=== PATIENT | female | born 1990 | race African-American/Black ===

== ENCOUNTER 2020-04-20 16:48 | Outpatient (CLI) | payer OTHER ==
[~2020-04-20] VITALS: Ht 170.2 cm; Wt 78.2 kg
[2020-04-20 17:03] VITALS: BP 99/57
[2020-04-20] MEDS ORDERED: PREN1TAB60 PO (17:32)
== END 2020-04-20 17:48 | disposition home or self-care (01) ==
LOC: LDOP 16:48
PROVIDERS: ATTEND Obstetrics & Gynecology
DX: O36.8130 Decreased fetal movements, third trimester, not applicable or unspecified (principal); Z3A.32 32 weeks gestation of pregnancy
CPT/HCPCS: 59025

== ENCOUNTER 2020-06-07 00:02 | Inpatient (IN) | payer OTHER ==
[~2020-06-07] VITALS: Ht 170.2 cm; Wt 80.0 kg
[~2020-06-07 00:02] MED LIST: PREN1TAB60 PO
[2020-06-07] MEDS ORDERED: LIDOCAINE 1%, 20ML ONE (00:45)
[2020-06-07] MEDS ORDERED: MISOPROSTOL 200 MCG TABLET ONE (00:45)
[2020-06-07] MEDS ORDERED: NEWBORN KIT ONE (00:45)
[2020-06-07] MEDS ORDERED: OXYTOCIN 30U/ 0.9% NaCL 500ML 0 ML ONE (00:46)
[2020-06-07] MEDS ORDERED: TERBUTALINE 1 MG/ML, 1ML ONE (00:46)
[2020-06-07] MEDS ORDERED: LACTATED RINGERS 1,000 ML IV SCH ×2 (01:00→02:30)
[2020-06-07] MEDS ORDERED: D5%-LACTATED RINGERS 1,000 ML IV SCH (01:00)
[2020-06-07] MEDS ORDERED: FENTANYL PF 100 MCG/2ML IVPush PRN (01:00)
[2020-06-07] MEDS ORDERED: SODIUM CITRATE/CITRIC ACID 30 ML UDC PO PRN (01:00)
[2020-06-07] MEDS ORDERED: TERBUTALINE 1 MG/ML, 1ML SQ PRN (01:00)
[2020-06-07] MEDS ORDERED: ONDANSETRON 2MG/ML, 2ML IVPush PRN ×2 (01:00→02:30)
[2020-06-07] MEDS ORDERED: OXYTOCIN 30U/ 0.9% NaCL 500ML 500 ML IV ONE (01:00)
[2020-06-07] MEDS ORDERED: CALCIUM CARBONATE 500 MG TAB.CHEW PO PRN ×2 (01:00→05:00)
[2020-06-07] MEDS ORDERED: METOCLOPRAMIDE 5 MG/ML, 2ML IVPush PRN (01:00)
[2020-06-07] MEDS ORDERED: FENTANYL PF 100 MCG/2ML IV PRN (01:00)
[2020-06-07] MEDS ORDERED: TERBUTALINE 1 MG/ML, 1ML IVPush PRN (01:00)
[2020-06-07 01:15] LABS: BASOPHILS % (AUTO) 1 % (0-1); EOSINOPHILS % (AUTO) 2 % (1-7); LYMPHOCYTES % (AUTO) 22 % (22-44); MEAN CORPUSCULAR HEMOGLOBIN 30.8 pg (27.0-34.8); MEAN CORPUSCULAR HGB CONC 33.5 g/dL (32.4-35.8); MEAN PLATELET VOLUME 9.7 fL (7.4-10.4); MONOCYTES % (AUTO) 4 % (2-9); NEUTROPHILS % (AUTO) 72 % (42-75); PLATELET COUNT 168 x10^3/uL (130-400); RED CELL DISTRIBUTION WIDTH 13.4 % (9.6-15.2)
[2020-06-07] MEDS ORDERED: BUPIVACAINE 0.25% ONE (01:24)
[2020-06-07] MEDS ORDERED: FENTANYL/BUPIV./NS/PF 250 ML EPIDCONT ONE (01:24)
[2020-06-07 01:25] LABS: MD NO
[2020-06-07] MEDS ORDERED: PLEASE ENTER HEIGHT AND WEIGHT MC SCH (02:00)
[2020-06-07] MEDS ORDERED: LACTATED RINGERS 1,000 ML IVBOLUS PRN (02:30)
[2020-06-07] MEDS ORDERED: EPHEDRINE 50 MG/ML, 1ML IVPush PRN (02:30)
[2020-06-07] MEDS ORDERED: FENTANYL/BUPIV./NS/PF 250 ML EPIDCONT SCH (02:30)
[2020-06-07] MEDS ORDERED: MAGNESIUM HYDROXIDE 8%, 30ML UDC PO PRN (05:00)
[2020-06-07] MEDS: OXYTOCIN 30U/ 0.9% NaCL 500ML 500 ML IV SCH ×2 (05:00→15:00)
[2020-06-07] MEDS ORDERED: ACETAMINOPHEN 325 MG TABLET PO PRN ×2 (05:00)
[2020-06-07] MEDS ORDERED: DIPH,PERTUSS(ACELL),TET VAC/PF NC IM-VACC PRN (05:00)
[2020-06-07] MEDS ORDERED: ONDANSETRON 2MG/ML, 2ML IV PRN (05:00)
[2020-06-07] MEDS ORDERED: RHOGAM FROM BLOOD BANK 1 NOTE EA IM/IV ONE (05:00)
[2020-06-07] MEDS ORDERED: SIMETHICONE 80 MG CHEW TAB PO PRN (05:00)
[2020-06-07] MEDS ORDERED: MISOPROSTOL 200 MCG TABLET PR PRN (05:00)
[2020-06-07] MEDS ORDERED: OXYcodone/APAP 5/325MG TABLET PO PRN ×2 (05:00)
[2020-06-07 07:08] VITALS: BP 91/54
[2020-06-07] MEDS: PRENATAL VIT/IRON/FA 1 EACH TABLET PO SCH (07:29)
[2020-06-07] MEDS: IBUPROFEN 600 MG TABLET PO PRN ×3 (10:08→23:51)
[2020-06-07 12:10] VITALS: BP 100/62
[2020-06-07 12:18] LABS: BASOPHILS % (AUTO) 0 % (0-1); EOSINOPHILS % (AUTO) 0 % (1-7); LYMPHOCYTES % (AUTO) 11 % (22-44); MEAN CORPUSCULAR HEMOGLOBIN 30.5 pg (27.0-34.8); MEAN CORPUSCULAR HGB CONC 33.5 g/dL (32.4-35.8); MEAN PLATELET VOLUME 9.5 fL (7.4-10.4); MONOCYTES % (AUTO) 7 % (2-9); NEUTROPHILS % (AUTO) 82 % (42-75); PLATELET COUNT 157 x10^3/uL (130-400); RED BLOOD COUNT 3.81 x10^6/uL (3.82-5.3); RED CELL DISTRIBUTION WIDTH 13.1 % (9.6-15.2)
[2020-06-07 12:19] LABS: MD NO
[2020-06-07 17:30] VITALS: BP 110/69
[2020-06-07 20:00] VITALS: BP 112/69
[2020-06-07] MEDS: DOCUSATE 100 MG CAPSULE PO PRN (20:05)
[2020-06-07 23:50] VITALS: BP 108/57
[2020-06-08] MEDS: OXYTOCIN 30U/ 0.9% NaCL 500ML 500 ML IV SCH (01:00)
[2020-06-08] MEDS: IBUPROFEN 600 MG TABLET PO PRN (05:53)
[2020-06-08 07:19] VITALS: BP 111/69
[2020-06-08] MEDS: PRENATAL VIT/IRON/FA 1 EACH TABLET PO SCH (07:33)
[2020-06-08] MEDS: DOCUSATE 100 MG CAPSULE PO PRN (07:33)
[2020-06-08] MEDS ORDERED: IBUP-1223 PO (09:18)
== END 2020-06-08 10:45 | disposition home or self-care (01) | DRG 807 ==
LOC: LDOP 00:02 → LDIP 00:28 → 2NW 06:27
PROVIDERS: ADMIT Obstetrics & Gynecology; ATTEND Obstetrics & Gynecology
PROC: 10E0XZZ Delivery of Products of Conception, External Approach (ICD-10-PCS; principal; 2020-06-07)
PROC: 0KQM0ZZ Repair Perineum Muscle, Open Approach (ICD-10-PCS; 2020-06-07)
PROC: 3E0R3BZ Introduction of Anesthetic Agent into Spinal Canal, Percutaneous Approach (ICD-10-PCS; 2020-06-07)
PROC: 00HU33Z Insertion of Infusion Device into Spinal Canal, Percutaneous Approach (ICD-10-PCS; 2020-06-07)
DX: O34.211 Maternal care for low transverse scar from previous cesarean delivery (principal); Z37.0 Single live birth; O70.1 Second degree perineal laceration during delivery; Z3A.39 39 weeks gestation of pregnancy; Z20.822 Contact with and (suspected) exposure to COVID-19
CPT/HCPCS: 36415; 85025; 86592; 86850; 86900; 87635; G0378; J3010

== ENCOUNTER 2020-11-28 12:13 | Emergency (ER) | payer OTHER ==
[~2020-11-28] VITALS: Ht 170.2 cm; Wt 75.0 kg
[~2020-11-28 12:13] MED LIST changes: +IBUP-1223 PO
[2020-11-28 12:24] VITALS: BP 122/73
--- NOTE | 2020-11-28 12:24 | NUR ---
PT BIBA FROM WORK FOR C/O R-SIDED NECK AND BACK PAIN WITH DIZZY SPELLS. PER EMS PT STATED SHE FELT DIZZY AT WORK AND LAID DOWN ON THE GROUND. PT STATES SHE FEELS LIGHT HEADED, DIZZY AND HAS A RODRIGUEZ. DENIES LOC, INJURY. DENIES N/V. PT DENIES ANY MEDICAL HX AND DENIES TAKING ANY MEDICATIONS. PT AXOX4. cHANGED INTO GOWN, ALL MONITORS IN PLACE, CALL LIGHT WITHIN REACH, BED RAILS UP X2, BED IN LOWEST POSITION.
--- NOTE | 2020-11-28 12:31 | NUR ---
ERP AT BS FOR EVAL
--- NOTE | 2020-11-28 12:32 | NUR ---
PT STATES SHE DOES NOT WANT ANY MEDICATION UNTIL SHE CAN USE A BREAST PUMP. ERP AWARE
--- NOTE | 2020-11-28 12:48 | NUR ---
Note lisbeth in ED - 11/28/20 at 1301 by [email or web address] PIV PLACED, LABS DRAWN, IVF INFUSING. PT RESTING ON GURNEY, NADN/VSS. CALL LIGHT WTHIN REACH, BED IN LOWEST POSITION, BED RAILS UP X2
--- NOTE | 2020-11-28 12:54 | NUR ---
PT TO IMAGING
--- NOTE | 2020-11-28 13:00 | NUR ---
PT BACK TO ROOM FROM IMAGING, CONNECTED TO MONITORS. CALL LIGHT WITHIN REACH. AT BS
[2020-11-28 13:04] LABS: BASOPHILS % (AUTO) 1 % (0-1); EOSINOPHILS % (AUTO) 2 % (1-7); LYMPHOCYTES % (AUTO) 41 % (22-44); MEAN CORPUSCULAR HEMOGLOBIN 28.6 pg (27.0-34.8); MEAN CORPUSCULAR HGB CONC 33.1 g/dL (32.4-35.8); MEAN PLATELET VOLUME 8.3 fL (7.4-10.4); MONOCYTES % (AUTO) 4 % (2-9); NEUTROPHILS % (AUTO) 52 % (42-75); PLATELET COUNT 273 x10^3/uL (130-400); RED BLOOD COUNT 4.51 x10^6/uL (3.82-5.3); RED CELL DISTRIBUTION WIDTH 12.9 % (9.6-15.2)
--- NOTE | 2020-11-28 13:07 | NUR ---
PT PROVIDED BREAST PUMP FROM POST . WILL CHECK ON PT AFTER 20 MINUTE PUMPING DURATION.
[2020-11-28 13:12] LABS: HCG UR SG 1.003 (1.003-1.030)
[2020-11-28 13:12] LABS: ANION GAP 6 mmol/L (5-15); CALCIUM 9.2 mg/dL (8.5-10.1); CHLORIDE 106 mmol/L (98-107)
[2020-11-28 13:15] LABS: CREATININE 1.02 mg/dL (0.55-1.02)
[2020-11-28] MEDS ORDERED: DIAZEPAM 5 MG TABLET ONE (13:28)
[2020-11-28] MEDS ORDERED: DIAZEPAM 5 MG TABLET PO ONE (13:30)
--- NOTE | 2020-11-28 14:09 | NUR ---
Patient is resting comfortably in bed. Bed in lowest, rails engaged, call light on lap. Vital Signs within normal limits. at bs. CAROLYN.
--- NOTE | 2020-11-28 14:55 | NUR ---
MED STUDENT AT BS
--- NOTE | 2020-11-28 15:00 | NUR ---
ERP & MED STUDENT AT BS
--- NOTE | 2020-11-28 15:45 | NUR ---
Patient given discharge instructions and RX, they have confirmed that they understand the instructions. Patient ambulatory with steady gait.
== END 2020-11-28 15:46 | disposition home or self-care (01) ==
LOC: ED 13:27
DX: S16.1XXA Strain of muscle, fascia and tendon at neck level, initial encounter (principal); R51.9 Headache, unspecified; R06.02 Shortness of breath; R94.31 Abnormal electrocardiogram [ECG] [EKG]; X58.XXXA Exposure to other specified factors, initial encounter; Y93.89 Activity, other specified; Y92.89 Other specified places as the place of occurrence of the external cause; Y99.8 Other external cause status
CPT/HCPCS: 36415; 72040; 80048; 81025; 85025; 93005; 99285